=== PATIENT | male | born 1960 | race African-American/Black ===

== ENCOUNTER 2024-01-18 21:23 | Emergency (ER) | payer OTHER ==
[~2024-01-18] VITALS: Ht 175.3 cm; Wt 73.0 kg
[~2024-01-18 21:23] MED LIST: AMLO5TAB88 MT; CIPR-263 MT; DOCU-138 MT; FURO-151 PO; HYDR-4001 PO
[2024-01-18 21:38] VITALS: O2SAT 100
[2024-01-18] MEDS ORDERED: HYDROCODONE/ACETAMINOPHEN 7.5/325MG TABLET PO ONE (22:30)
[2024-01-19] MEDS: HYDROCODONE/ACETAMINOPHEN 7.5/325MG TABLET PO NR (00:42)
[2024-01-19] MEDS: LIDOCAINE 5% PATCH TOP SCH (00:42)
[2024-01-19] MEDS ORDERED: HYDR-4001 MT (01:18)
[2024-01-19] MEDS ORDERED: LIDO700A15 TP (01:19)
[2024-01-19 05:14] VITALS: BP 129/59; PULSE 98; RESP 17; TEMP 36.83628; O2SAT 98
== END 2024-01-19 05:17 | disposition home or self-care (01) ==
LOC: ER 21:23
DX: M25.512 Pain in left shoulder (principal); G31.89 Other specified degenerative diseases of nervous system; Z79.899 Other long term (current) drug therapy; V49.49XA Driver injured in collision with other motor vehicles in traffic accident, initial encounter; Y93.89 Activity, other specified; Y92.89 Other specified places as the place of occurrence of the external cause; Y99.8 Other external cause status
CPT/HCPCS: 71045; 73030; 70450; 70486; 72125; 99284; Z7610 ×3